=== PATIENT | male | born 1940 | race Caucasian/White ===

== ENCOUNTER 2020-12-18 05:30 | Day surgery (SDC) | payer MEDICARE ==
[2020-12-12 16:16] LABS: BASOPHILS % (AUTO) 0.7 % (0-1); EOSINOPHILS # (AUTO) 0.1 X10'3 (0-0.9); EOSINOPHILS % (AUTO) 1.1 % (0-6); LYMPHOCYTES # (AUTO) 1.3 X10'3 (1.1-4.8); LYMPHOCYTES % (AUTO) 21.6 % (21-51); MEAN CORPUSCULAR HEMOGLOBIN 29.7 PG (27.0-31.0); MEAN CORPUSCULAR VOLUME 87.4 FL (78-98); MEAN PLATELET VOLUME 7.5 FL (7.4-10.4); MONOCYTES # (AUTO) 0.7 X10'3 (0-0.9); MONOCYTES % (AUTO) 11.3 % (2-12); NEUTROPHILS % (AUTO) 65.3 % (42-75); PRE OP HEMATOCRIT 42.7 % (42.0-52.0); PRE OP HEMOGLOBIN 14.5 g/dL (14.0-17.9); PRE OP PLATELET COUNT 262 X10'3 (140-440); RED BLOOD COUNT 4.88 X10'6 (4.70-6.10); RED CELL DISTRIBUTION WIDTH 14.3 % (11.5-14.5)
[2020-12-12 16:32] LABS: ALBUMIN 3.6 G/DL (3.4-5.0); ALKALINE PHOSPHATASE 73 IU/L (46-116); BLOOD UREA NITROGEN 17 MG/DL (7-18); CALCIUM 8.7 MG/DL (8.5-10.1); CHLORIDE 105 MMOL/L (99-107); CREATININE 1.13 MG/DL (0.60-1.10); PRE OP ALT 20 U/L (30-65); PRE OP ANION GAP 9 (8-16); PRE OP AST 15 U/L (10-37); PRE OP BILIRUB, TOTAL 0.3 MG/DL (0.0-1.0); PRE OP GLUCOSE 94 MG/DL (70-104); PRE OP POTASSIUM 4.6 MMOL/L (3.4-5.1); PRE OP SODIUM 142 MMOL/L (135-145); TOTAL CARBON DIOXIDE 28.3 MMOL/L (24-32); TOTAL PROTEIN 7.2 G/DL (6.4-8.2); eGFR 63 ML/MIN
[~2020-12-18] VITALS: Ht 182.9 cm; Wt 104.6 kg
[~2020-12-18 05:30] MED LIST: LISI20TA28 PO; cefazolin/dext.iso 2gm/50ml 50 ML IV ONE; famotidine 20mg tablet PO ONE; ringers solution, lacted 1,000 ML IV SCH
[2020-12-18 05:35] VITALS: BP 153/89
[2020-12-18] MEDS ORDERED: LIDOcaine 1% 30ml preserv. free vial ONE (06:53)
[2020-12-18] MEDS ORDERED: BUPIVAcaine/PF 2.5mg/ml (0.25%) 10ml vial ONE (06:53)
[2020-12-18] MEDS ORDERED: sevoflurane 250ml liquid IH ONE (07:34)
[2020-12-18] MEDS ORDERED: HYDROmorphone/PF 0.2 MG/ML SYRINGE IV PRN (07:35)
[2020-12-18] MEDS ORDERED: ringers solution, lacted 1,000 ML IV SCH (07:35)
[2020-12-18] MEDS ORDERED: morphine 2 MG/ML inj. syringe IV PRN (07:35)
[2020-12-18] MEDS ORDERED: ondansetron/PF 4mg/2ml inj IV PRN (07:35)
[2020-12-18] MEDS ORDERED: fentaNYL/PF 50MCG/1 ML 2ML syringe ONE (07:42)
[2020-12-18] MEDS ORDERED: LIDOcaine 2% (20mg/ml) 5ml vial ONE (07:51)
[2020-12-18] MEDS ORDERED: rocuronium 10mg/ml inj IV ONE (07:51)
[2020-12-18] MEDS ORDERED: propofol inj 20 ML IV ONE (07:51)
[2020-12-18] MEDS ORDERED: acetaminophen 1,000mg/100ml IV 100 ML IV ONE (08:02)
[2020-12-18] MEDS ORDERED: ondansetron/PF 4mg/2ml inj ONE (08:17)
[2020-12-18] MEDS ORDERED: dexamethasone sod phosphate 4mg/ml inj. ONE (08:17)
[2020-12-18] MEDS ORDERED: sugammadex 200mg/2ml injection IV ONE (08:18)
[2020-12-18 08:35] VITALS: BP 149/86
--- NOTE | 2020-12-18 08:35 | NUR ---
ADMITTED TO PACU FROM OR ACCOMPANIED BY ANESTHESIA. INTIAL PHYSICAL ASSESSMENT DONE AND RECORDED. REPORT RECEIVED FROM ANESTHESIA.
[2020-12-18 08:45] VITALS: BP 132/78
[2020-12-18 08:55] VITALS: BP 137/85
[2020-12-18] MEDS ORDERED: oxyCODONE/APAP 5-325mg tablet PO PRN (08:55)
[2020-12-18 09:05] VITALS: BP 147/80
[2020-12-18 09:15] VITALS: BP 142/78
--- NOTE | 2020-12-18 09:20 | NUR ---
DISCHARGE CRITERIA MET, DISCHARGE INSTRUCTIONS GIVEN, DEMONSTRATES VERBAL UNDERSTANDING. DISCHARGED HOME IN GOOD CONDITION.
== END 2020-12-18 09:20 | disposition home or self-care (01) ==
LOC: PAS 05:30
PROVIDERS: ATTEND Surgery
DX: K43.6 Other and unspecified ventral hernia with obstruction, without gangrene (principal); K42.9 Umbilical hernia without obstruction or gangrene; K21.9 Gastro-esophageal reflux disease without esophagitis; I10 Essential (primary) hypertension; Z91.041 Radiographic dye allergy status; Z20.822 Contact with and (suspected) exposure to COVID-19; Z98.890 Other specified postprocedural states; Z87.891 Personal history of nicotine dependence; Z85.118 Personal history of other malignant neoplasm of bronchus and lung; Z79.899 Other long term (current) drug therapy; Z82.3 Family history of stroke; Z80.9 Family history of malignant neoplasm, unspecified
CPT/HCPCS: 36415; 49561; 49585; 71046; 80053; 82948; 85025; 93005; C1781; C9399; J0131; J1100; J2001; J2405; J2704; J3010; J3490; J7120; U0003; U0005; Z7506; Z7512; A4215; A4618; A7000